=== PATIENT | female | born 1940 | race Caucasian/White ===

== ENCOUNTER 2017-07-28 18:52 | Emergency (ER) | payer BC, MEDICARE ==
[2017-07-28 19:32] LABS: HEMATOCRIT 45.4 % (35.0-47.0); HEMOGLOBIN 14.9 gm/dl (11.6-16.0); MEAN CELL VOLUME 96.4 fl (81-97); MEAN CORPUSCULAR HEMOGLOBIN 31.6 pg (27-33); MEAN CORPUSCULAR HGB CONC 32.8 g/dl (32-36); MEAN PLATELET VOLUME 11.5 fl (7.4-10.4); PLATELET COUNT 140 K/uL (130-400); RED BLOOD COUNT 4.71 M/uL (3.80-5.40); RED CELL DISTRIBUTION WIDTH 14.2 % (11.5-14.5); WHITE BLOOD COUNT W/O DIFF 4.8 K/uL (4.2-12.2)
[2017-07-28 19:42] LABS: INFLUENZA A NEGATIVE (NEGATIVE); INFLUENZA B POSITIVE (NEGATIVE)
[2017-07-28 19:43] LABS: BLOOD UREA NITROGEN 19 mg/dL (8-23); CREATININE 0.8 mg/dL (0.5-0.9); EST GLOMERULAR FILTRATION RATE > 60 mL/min
[2017-07-28 19:46] LABS: GLUCOSE,RANDOM 310 mg/dL (74-109)
--- NOTE | 2017-07-28 19:48 | Emergency Department Record ---
History of Present Illness - General Chief Complaint: Cough Stated Complaint: COUGH,CHEST HURTS WHILE COUGHING Time Seen by Provider: 07/28/17 19:13 Source: Family Mode of Arrival: Ambulatory Limitations: No limitations - History of Present Illness MD Complaint: Cough, Nasal congestion Onset/Timin -: Days(s) Severity: Mild Consistency: Intermittent Improves With: Nothing Worsens With: Nothing Associated Symptoms: Cough, Nasal congestion - Related Data Home Medications Medication Instructions Recorded Confirmed Last Taken NPH, Human Insulin N [Novolin N] 1 unit SQ ASDIR 07/28/17 07/28/17 Unknown Previous Rx's Medication Instructions Recorded Oseltamivir Phosphate [Tamiflu] 75 mg PO BID #9 capsule 07/28/17 Allergies Allergy/AdvReac Type Severity Reaction Status Date / Time No Known Drug Allergies Allergy Verified 07/28/17 18:59 Travel Screening - Travel/Exposure Within Last 30 Days Have you traveled within the last 30 days?: No - Travel/Exposure Within Last Year Have you traveled outside the [place] in the last year?: No - Additonal Travel Details Have you been exposed to anyone with a communicable illness?: No - Travel Symptoms Symptom Screening: None Review of Systems ROS unobtainable: Due to mental status Past Medical History - SOCIAL HISTORY Smoking Status: Never smoker Alcohol Use: None Drug Use: None - RESPIRATORY Hx Respiratory Disorders: No - CARDIOVASCULAR Hx Cardio Disorders: Yes Hx Hypertension: Yes - NEURO Hx Neuro Disorders: Yes Hx Dementia: Yes - GI Hx GI Disorders: No - Hx Genitourinary Disorders: No - ENDOCRINE Hx Endocrine Disorders: Yes Hx Diabetes: Yes - MUSCULOSKELETAL Hx Musculoskeletal Disorders: No - PSYCH Hx Psych Problems: No - HEMATOLOGY/ONCOLOGY Hx Hematology/Oncology Disorders: No Family Medical History Any Significant Family History?: No Physical Exam - General General Appearance: Alert, Cooperative, No acute distress - Head Head exam: Normal inspection - Eye Eye exam: Normal appearance, PERRL, EOMI Pupils: Normal accommodation - ENT ENT exam: Normal exam, Mucous membranes moist, Normal external ear exam, Normal orophraynx Ear exam: Normal external inspection. negative: External canal tenderness Nasal Exam: Normal inspection. negative: Discharge, Sinus tenderness Mouth exam: Normal external inspection, Tongue normal Teeth exam: Normal inspection. negative: Dental caries Throat exam: Normal inspection. negative: Tonsillar erythema, Tonsillar exudate - Neck Neck exam: Normal inspection, Full ROM. negative: Tenderness - Respiratory Respiratory exam: Normal lung sounds bilaterally. negative: Respiratory distress - Cardiovascular Cardiovascular Exam: Regular rate, Normal rhythm, Normal heart sounds - GI/Abdominal GI/Abdominal exam: Soft, Normal bowel sounds. negative: Tenderness - Rectal Rectal exam: Deferred - exam: Deferred - Extremities Extremities exam: Normal inspection, Full ROM, Normal capillary refill. negative: Tenderness - Back Back exam: Reports: Normal inspection, Full ROM. Denies: Muscle spasm, Rash noted, Tenderness - Neurological Neurological exam: Alert, CN II-XII intact, Normal gait - Psychiatric Psychiatric exam: Normal affect, Normal mood - Skin Skin exam: Dry, Intact, Normal color, Warm Course Vital Signs 07/28/17 18:58 Temperature 98.9 F Pulse Rate 88 Respiratory 20 Rate Blood Pressure 157/73 Pulse Ox 96 Medical Decision Making - Lab Data Result diagrams: 07/28/17 19:25 07/28/17 19:25 Lab Results 07/28/17 07/28/17 Range/Units 19:25 19:25 WBC 4.8 (4.2-12.2) K/uL RBC 4.71 (3.80-5.40) M/uL Hgb 14.9 (11.6-16.0) gm/dl Hct 45.4 (35.0-47.0) % MCV 96.4 (81-97) fl MCH 31.6 (27-33) pg MCHC 32.8 (32-36) g/dl RDW 14.2 (11.5-14.5) % Plt Count 140 (130-400) K/uL MPV 11.5 H (7.4-10.4) fl Neutrophils % 65.0 (47-80) % Band Neutrophils % 0.0 (0-5) % Eosinophils % Not Reportable Basophils % Not Reportable Lymphocytes 20.0 (16-45) % Monocytes 15.0 H (0-9) % Basophils 0.0 (0-6) % Eosinophil Count 0.0 (0-6) % Influenza Type A Ag Negative (NEGATIVE) Influenza Type B Ag Positive H (NEGATIVE) Disposition Disposition: Discharge Clinical Impression: Influenza B Disposition: Home, Self-Care Condition: (1) Good Instructions: Influenza (ED) Additional Instructions: follow up with family doctor this week. return sooner if worse. Prescriptions: Oseltamivir Phosphate [Tamiflu] 75 mg PO BID #9 capsule Forms: Patient Portal Access Quality - Quality Measures Quality Measures: N/A - Blood Pressure Screening Does Patient Have Any of the Following: No Blood Pressure Classification: Hypertensive Reading Systolic Measurement: 157 Diastolic Measurement: 73 Screening for High Blood Pressure: < First Hypertensive BP, F/U Documented > [ [id number]] First Hypertensive Follow-up Interventions: Follow-up with rescreen GT 1 day and LT 4 weeks.
[2017-07-28 19:51] LABS: NTpro B-NATRIURETIC PEPTIDE 76.61 pg/mL (<450)
[2017-07-28] MEDS ORDERED: OSTELTAMIVIR 75 MG CAP PO ONE (19:53)
[2017-07-28] MEDS ORDERED: HUMULIN R 100 UNIT/ML VIAL SQ ONE (20:07)
--- NOTE | 2017-07-29 07:42 | RADIOLOGY REPORT ---
EXAM: CHEST , TWO VIEWS HISTORY: UNPRODUCTIVE PAINFUL COUGH AND FLU LIKE SYMPTOMS. TECHNIQUE: PA and lateral upright views of the chest were obtained. Comparison: None. FINDINGS: The heart is mildly enlarged. There is calcification of the aorta. The mediastinum and pulmonary vasculature are normal. There is mild atelectasis or scarring within the lingula. There are no acute infiltrates or effusions. There is no pneumothorax. The bones appear intact. Degenerative changes are present within the spine. IMPRESSION: 1. NO ACUTE CHEST PATHOLOGY. 2. MILD CARDIOMEGALY. 3. MILD ATELECTASIS OR SCARRING WITHIN THE LINGULA. JOB NUMBER: [id number] MTDD
== END 2017-07-28 20:26 | disposition home or self-care (01) ==
LOC: ER 18:52
DX: J10.1 Influenza due to other identified influenza virus with other respiratory manifestations (principal); I10 Essential (primary) hypertension; E11.9 Type 2 diabetes mellitus without complications; Z79.4 Long term (current) use of insulin
CPT/HCPCS: 71046; 80048; 83880; 85027; 87400; 96372; 99283; 99284